=== PATIENT | female | born 1965 | race Two or more races ===

== ENCOUNTER 2024-08-19 08:28 | Emergency (ER) | payer BC ==
[~2024-08-19] VITALS: Ht 162.6 cm; Wt 52.3 kg
[~2024-08-19 08:28] MED LIST: ALUMCHW6 PO; METO-281 PO; TRAM50TA2 PO
[2024-08-19 08:51] VITALS: BP 116/70; PULSE 92; RESP 16; TEMP 97.6; O2SAT 98
[2024-08-19] MEDS: KETOROLAC TROMETH 30 MG/ML 1ML VIAL IM ONE (08:59)
[2024-08-19] MEDS ORDERED: IBUP1TAB4 PO (09:00)
[2024-08-19] MEDS ORDERED: METH-1182 PO (09:00)
== END 2024-08-19 09:04 | disposition home or self-care (01) ==
LOC: ER 08:28
DX: M54.42 Lumbago with sciatica, left side (principal); Z88.6 Allergy status to analgesic agent; Z90.49 Acquired absence of other specified parts of digestive tract
CPT/HCPCS: 96372; 99283; J1885